=== PATIENT | male | born 1950 | race Caucasian/White ===

== ENCOUNTER 2022-03-24 11:06 | Emergency (ER) | payer OTHER ==
[~2022-03-24] VITALS: Ht 162.6 cm; Wt 86.0 kg
[2022-03-24 11:10] VITALS: BP 170/99
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
== END 2022-03-24 13:27 | disposition home or self-care (01) ==
LOC: ER 11:07
DX: S01.01XA Laceration without foreign body of scalp, initial encounter (principal); Y00.XXXA Assault by blunt object, initial encounter; Y93.89 Activity, other specified; Y92.89 Other specified places as the place of occurrence of the external cause; Y99.8 Other external cause status
CPT/HCPCS: 12002; 70450; 99284; J7030; A6449

== ENCOUNTER 2022-04-07 11:19 | Emergency (ER) | payer OTHER | END 2022-04-07 15:53 | disposition left against medical advice (07) | LOC: ER 11:19 | DX: Z48.00 Encounter for change or removal of nonsurgical wound dressing (principal); Z53.21 Procedure and treatment not carried out due to patient leaving prior to being seen by health care provider ==

== ENCOUNTER 2022-04-09 09:30 | Emergency (ER) | payer OTHER ==
[~2022-04-09] VITALS: Ht 180.3 cm; Wt 86.4 kg
[2022-04-09 09:54] VITALS: BP 177/133
[2022-04-09] MEDS ORDERED: CEPH250T PO (10:37)
== END 2022-04-09 11:02 | disposition home or self-care (01) ==
LOC: ER 09:31
DX: S01.01XD Laceration without foreign body of scalp, subsequent encounter (principal); W22.8XXD Striking against or struck by other objects, subsequent encounter
CPT/HCPCS: 99283; A6449